=== PATIENT | male | born 1960 | race Hispanic/Latino ===

== ENCOUNTER 2018-11-06 00:03 | Observation (INO) | payer SELFPAY ==
[2018-11-06] VITALS (7 sets, daily range): BP systolic 131–198; BP diastolic 63–90
[~2018-11-06] VITALS: Ht 188 cm; Wt 94.4 kg
[~2018-11-06 00:03] MED LIST: TYLENOL500 MG OR
[2018-11-06 00:49] LABS: HEMATOCRIT 44.8 % (39.0-50.0); HEMOGLOBIN 15.4 g/dl (14.0-18.0); IMMATURE GRANULOCYTES 1.4 % (0.0-5.0); MEAN CORPUSCULAR HGB 29.9 pG CALC (26.0-32.0); MEAN CORPUSCULAR HGB CONC 34.4 g/L CALC (32.0-36.0); NEUT# 17.83 thou/uL (1.82-7.42); RED BLOOD COUNT 5.15 mill/uL (4.70-6.10); RED CELL DISTRI WIDTH 12.3 % (11.5-15.5)
[2018-11-06 01:00] LABS: ALBUMIN 3.9 g/dL (3.2-5.0); ALKALINE PHOSPHATASE 103 u/l (38-126); AMYLASE 51 u/l (30-110); ANION GAP 17 (6-22 (CALC)); BILIRUBIN, TOTAL 0.6 mg/dL (0.0-1.4); BUN 13 mg/dL (9-20); BUN/CREATININE RATIO 13 (12-20 (CALC)); CARBON DIOXIDE 25 mmol/l (22-30); CHLORIDE 100 mmol/l (95-108); GFR > 60 ML/MIN (>=60 (CALC)); GFR FOR AFR.AMER. > 60 ML/MIN (>=60 (CALC)); LIPASE 76 u/l (23-300); POTASSIUM 4.4 mmol/l (3.5-5.1); SGOT/AST 33 u/l (17-59); SODIUM 137 mmol/l (137-146); TOTAL PROTEIN 6.8 g/dL (6.3-8.2)
[2018-11-06 03:07] LABS: URINE BILIRUBIN - DIPSTICK NEGATIVE (NEGATIVE); URINE BLOOD DIPSTICK NEGATIVE (NEGATIVE); URINE COLOR YELLOW; URINE GLUCOSE - DIPSTICK 100 mg/dL (NEGATIVE); URINE KETONE NEGATIVE (NEGATIVE); URINE LEUK ESTERASE NEGATIVE (NEGATIVE); URINE NITRITE - DIPSTICK NEGATIVE (Negative); URINE PROTEIN - DIPSTICK NEGATIVE (NEG-TRACE)
[2018-11-06 05:22] LABS: HEMATOCRIT 42.7 % (39.0-50.0); HEMOGLOBIN 14.5 g/dl (14.0-18.0); IMMATURE GRANULOCYTES 2.8 % (0.0-5.0); MEAN CELL VOLUME 87.3 fL CALC (80.0-100.0); MEAN CORPUSCULAR HGB 29.7 pG CALC (26.0-32.0); NEUT# 22.67 thou/uL (1.82-7.42); RED BLOOD COUNT 4.89 mill/uL (4.70-6.10); RED CELL DISTRI WIDTH 12.3 % (11.5-15.5)
[2018-11-06 05:40] LABS: ALBUMIN 3.6 g/dL (3.2-5.0); ALKALINE PHOSPHATASE 109 u/l (38-126); ANION GAP 15 (6-22 (CALC)); BUN 11 mg/dL (9-20); BUN/CREATININE RATIO 13 (12-20 (CALC)); CARBON DIOXIDE 23 mmol/l (22-30); CHLORIDE 101 mmol/l (95-108); CREATININE 0.9 mg/dL (0.7-1.3); GFR > 60 ML/MIN (>=60 (CALC)); GFR FOR AFR.AMER. > 60 ML/MIN (>=60 (CALC)); POTASSIUM 4.4 mmol/l (3.5-5.1); SGOT/AST 32 u/l (17-59); SODIUM 135 mmol/l (137-146); TOTAL PROTEIN 6.4 g/dL (6.3-8.2)
[2018-11-06 06:21] LABS: BILIRUBIN, TOTAL 0.9 mg/dL (0.0-1.4)
[2018-11-07 04:01] VITALS: BP 140/74
[2018-11-07 05:27] LABS: HEMATOCRIT 41.8 % (39.0-50.0); HEMOGLOBIN 14.2 g/dl (14.0-18.0); IMMATURE GRANULOCYTES 4.6 % (0.0-5.0); MEAN CORPUSCULAR HGB 29.9 pG CALC (26.0-32.0); NEUT# 20.9 thou/uL (1.82-7.42); RED BLOOD COUNT 4.75 mill/uL (4.70-6.10); RED CELL DISTRI WIDTH 12.6 % (11.5-15.5)
[2018-11-07 05:43] LABS: ALKALINE PHOSPHATASE 117 u/l (38-126); AMYLASE 39 u/l (30-110); ANION GAP 13 (6-22 (CALC)); BILIRUBIN, TOTAL 0.6 mg/dL (0.0-1.4); BUN 9 mg/dL (9-20); BUN/CREATININE RATIO 10 (12-20 (CALC)); CARBON DIOXIDE 25 mmol/l (22-30); CHLORIDE 103 mmol/l (95-108); CREATININE 0.9 mg/dL (0.7-1.3); GFR > 60 ML/MIN (>=60 (CALC)); GFR FOR AFR.AMER. > 60 ML/MIN (>=60 (CALC)); LIPASE 52 u/l (23-300); MAGNESIUM 2.2 mg/dL (1.6-2.3); POTASSIUM 4.2 mmol/l (3.5-5.1); SGOT/AST 32 u/l (17-59); SODIUM 137 mmol/l (137-146); TOTAL PROTEIN 5.7 g/dL (6.3-8.2)
[2018-11-07 07:39] VITALS: BP 156/86
[2018-11-07 16:00] VITALS: BP 143/78
[2018-11-07 20:21] VITALS: BP 123/64
[2018-11-08 03:45] VITALS: BP 134/79
[2018-11-08 05:17] LABS: HEMOGLOBIN 13.7 g/dl (14.0-18.0); IMMATURE GRANULOCYTES 2.2 % (0.0-5.0); MEAN CELL VOLUME 88.4 fL CALC (80.0-100.0); MEAN CORPUSCULAR HGB 29.5 pG CALC (26.0-32.0); MEAN CORPUSCULAR HGB CONC 33.4 g/L CALC (32.0-36.0); NEUT# 19.69 thou/uL (1.82-7.42); RED BLOOD COUNT 4.64 mill/uL (4.70-6.10); RED CELL DISTRI WIDTH 12.7 % (11.5-15.5)
[2018-11-08 05:49] LABS: ALBUMIN 2.9 g/dL (3.2-5.0); ALKALINE PHOSPHATASE 136 u/l (38-126); ANION GAP 11 (6-22 (CALC)); BILIRUBIN, TOTAL 0.6 mg/dL (0.0-1.4); BUN 10 mg/dL (9-20); BUN/CREATININE RATIO 11 (12-20 (CALC)); CARBON DIOXIDE 26 mmol/l (22-30); CHLORIDE 104 mmol/l (95-108); CREATININE 0.9 mg/dL (0.7-1.3); GFR > 60 ML/MIN (>=60 (CALC)); GFR FOR AFR.AMER. > 60 ML/MIN (>=60 (CALC)); MAGNESIUM 2.2 mg/dL (1.6-2.3); POTASSIUM 4.2 mmol/l (3.5-5.1); SGOT/AST 31 u/l (17-59); SODIUM 137 mmol/l (137-146); TOTAL PROTEIN 5.6 g/dL (6.3-8.2)
[2018-11-08 07:50] VITALS: BP 131/73
[2018-11-08] MEDS ORDERED: CIPROFLOXACN500 MG PO (14:02)
[2018-11-08] MEDS ORDERED: LORTAB 5/3255 MG PO (14:11)
== END 2018-11-08 14:31 | disposition home or self-care (01) | DRG 728 ==
LOC: ED 00:03 → ED-I 00:17 → ED 00:17 → ED-I 02:25 → ED 03:27 → MS2 03:28
PROVIDERS: Emergency Medicine; ADMIT Internal Medicine Nephrology; ATTEND Internal Medicine Nephrology
DX: N45.3 Epididymo-orchitis (principal); F17.210 Nicotine dependence, cigarettes, uncomplicated; R73.9 Hyperglycemia, unspecified
CPT/HCPCS: G0378; J1956

== ENCOUNTER 2020-09-16 21:19 | Emergency (ER) | payer SELFPAY ==
[~2020-09-16] VITALS: Ht 185.4 cm; Wt 90.0 kg
[~2020-09-16 21:19] MED LIST changes: +CIPROFLOXACN500 MG PO; +LORTAB 5/3255 MG PO
[2020-09-16] MEDS ORDERED: KEFLEX500 MG PO (22:20)
[2020-09-16] MEDS ORDERED: BACTRIM DS1 TAB PO (22:20)
[2020-09-16] MEDS ORDERED: MOTRIN800 MG PO (22:20)
[2020-09-16 22:28] VITALS: BP 139/87
== END 2020-09-16 22:28 | disposition home or self-care (01) | DRG 603 ==
LOC: ED 21:19
DX: L03.114 Cellulitis of left upper limb (principal); M70.32 Other bursitis of elbow, left elbow

== ENCOUNTER 2020-12-07 19:43 | Emergency (ER) | payer OTHER ==
[~2020-12-07 19:43] MED LIST changes: +BACTRIM DS1 TAB PO; +KEFLEX500 MG PO; +MOTRIN800 MG PO
[2020-12-07 20:23] LABS: IMMATURE GRANULOCYTES 0.9 % (0.0-5.0); MEAN CELL VOLUME 86.9 fL CALC (80.0-100.0); MEAN CORPUSCULAR HGB 30.3 pG CALC (26.0-32.0); MEAN CORPUSCULAR HGB CONC 34.8 g/dL CAL (32.0-36.0); NEUT# 6.43 thou/uL (1.82-7.42); RED BLOOD COUNT 5.58 mill/uL (4.70-6.10); RED CELL DISTRI WIDTH 12.2 % (11.5-15.5)
[2020-12-07 20:24] LABS: HEMATOCRIT 48.5 % (39.0-50.0); HEMOGLOBIN 16.9 g/dl (14.0-18.0)
[2020-12-07 20:38] LABS: ALKALINE PHOSPHATASE 91 u/l (38-126); ANION GAP 14 (6-22 (CALC)); BILIRUBIN, TOTAL 0.5 mg/dL (0.0-1.4); BUN 13 mg/dL (9-20); BUN/CREATININE RATIO 13 (12-20 (CALC)); CARBON DIOXIDE 25 mmol/l (22-30); CHLORIDE 96 mmol/l (95-108); GFR > 60 ML/MIN (>=60 (CALC)); GFR FOR AFR.AMER. > 60 ML/MIN (>=60 (CALC)); SODIUM 131 mmol/l (137-146)
[2020-12-07 20:42] LABS: ALBUMIN 4.5 g/dL (3.2-5.0); SGOT/AST 104 u/l (17-59); TOTAL PROTEIN 8.3 g/dL (6.3-8.2)
[2020-12-07 20:50] LABS: MYOGLOBIN 362 ng/mL (0 - 121)
[2020-12-07 21:41] VITALS: BP 161/84
== END 2020-12-07 21:41 | disposition left against medical advice (07) | DRG 177 ==
LOC: ED 19:43
PROVIDERS: Emergency Medicine
DX: U07.1 COVID-19 (principal); J12.82 Pneumonia due to coronavirus disease 2019; Z91.19 Patient's noncompliance with other medical treatment and regimen